=== PATIENT | female | born 1945 | race American Indian/Alaskan Native ===

== ENCOUNTER 2019-09-20 04:01 | Emergency (ER) | payer MEDICARE ==
--- NOTE | 2019-09-20 05:16 | XRay Report ---
LEFT ANKLE 3 VIEWS INDICATION / CLINICAL INFORMATION: left ankle pain COMPARISON: None available. FINDINGS: BONES / JOINT(S): No acute fracture or subluxation. No significant arthritis. SOFT TISSUES: There is significant soft tissue swelling. ADDITIONAL FINDINGS: None. Signer Name: Evaristo River MD Signed: 09/20/2019 5:12 AM Workstation Name: [id number]
--- NOTE | 2019-09-20 05:46 | Emergency Department Report ---
HPI - General Chief Complaint: Extremity Injury, Lower Time Seen by Provider: 09/20/19 05:36 - HPI HPI: 74-year-old -[place] female presents to the emergency department via EMS from [facility] with a complaint of left ankle pain and swelling after she fell and slid down in the bathroom on night, about 30 hours ago. She says that her left foot and ankle went underneath her and she has been having pain since that time. She denies hitting her head or any loss of consciousness. She has a past medical history of kidney stones, paroxysmal A. fib, COPD, and orthostatic hypotension. She has no other complaints at this time. The patient is currently at [place] for physical rehabilitation. ED Past Medical Hx - Past Medical History Previous Medical History?: Yes Hx Kidney Stones: Yes Additional medical history: Afib, low BP - Surgical History Past Surgical History?: Yes Additional Surgical History: head surgery - Social History Smoking Status: Never Smoker Substance Use Type: None ED Review of Systems ROS: Stated complaint: LT ANKLE INJURY Other details as noted in HPI Comment: All other systems reviewed and negative Constitutional: denies: chills, fever Respiratory: denies: shortness of breath Cardiovascular: denies: chest pain Gastrointestinal: denies: abdominal pain Musculoskeletal: joint swelling, arthralgia Skin: denies: rash, lesions Neurological: denies: numbness, paresthesias Physical Exam - Physical Exam Vital Signs: Vital Signs 09/20/19 09/20/19 09/20/19 04:18 04:30 05:00 Temperature 97.8 F Pulse Rate 73 69 69 Respiratory 22 17 22 Rate Blood Pressure 104/63 100/58 99/63 O2 Sat by Pulse 95 99 Oximetry Physical Exam: GENERAL: The patient is well-developed well-nourished. HEENT: Normocephalic. Atraumatic. Patient has moist mucous membranes. EYES: Extraocular motions are intact. NECK: Supple. Trachea is midline. CHEST/LUNGS: Clear to auscultation. There is no respiratory distress noted. HEART/CARDIOVASCULAR: Regular. There is no tachycardia. There is no murmur. ABDOMEN: There is no abdominal distention. SKIN:Skin is warm and dry. There is mild left ankle swelling. NEURO: The patient is awake, alert, and oriented. The patient is cooperative. The patient has no focal neurologic deficits. Normal speech. MUSCULOSKELETAL: There is tenderness to palpation to the circumferential left ankle but no obvious deformities. +2 over 4 dorsalis pedis pulse. There is no tenderness to palpation or compression of the hips or pelvis. ED Course Vital Signs 09/20/19 09/20/19 09/20/19 04:18 04:30 05:00 Temperature 97.8 F Pulse Rate 73 69 69 Respiratory 22 17 22 Rate Blood Pressure 104/63 100/58 99/63 O2 Sat by Pulse 95 99 Oximetry ED Medical Decision Making - Radiology Data Radiology results: image reviewed interpreted by me: X-ray of the left ankle does not show any fracture, dislocation, or any acute process. - Medical Decision Making This patient presents to the emergency department with left ankle pain after she fell with her foot and ankle underneath her on evening. An x-ray was done here that does not show any fracture, dislocation, or any acute process. The patient appears neurovascularly intact. She does not have any other areas of discomfort or any other complaints at this time. She has been placed in a ankle wrap and has been given some referrals for orthopedic follow-up. She will return to the ER with any worsening of her symptoms or any acute distress. - Differential Diagnosis ankle sprain, fracture, dislocation Critical Care Time: No Critical care attestation.: If time is entered above; I have spent that time in minutes in the direct care of this critically ill patient, excluding procedure time. ED Disposition Clinical Impression: Left ankle pain Qualifiers: Chronicity: acute Qualified Code(s): M25.572 - Pain in left ankle and joints of left foot Ankle sprain Qualifiers: Encounter type: initial encounter Involved ligament of ankle: unspecified ligament Laterality: left Qualified Code(s): S93.402A - Sprain of unspecified ligament of left ankle, initial encounter Disposition: TO HOME OR SELFCARE Is pt being admited?: No Condition: Stable Instructions: Ankle Sprain (ED), Arthralgia (ED) Additional Instructions: Please follow up with your primary care physician in the next few days. I'm giving you a referral for to local orthopedic groups in the area, Dr. Rothman and Stephanie, to follow up regarding your ankle pain. Return to the emergency Department with any worsening of your symptoms or any acute distress. Referrals: JAYY ROTHMAN MD [Staff Physician] - 2-3 Days [facility] [Provider Group] - 2-3 Days Time of Disposition: 05:40
[2019-09-20 07:01] VITALS: BP 98/53
== END 2019-09-20 07:43 | disposition home or self-care (01) ==
LOC: ED 04:01
DX: S93.402A Sprain of unspecified ligament of left ankle, initial encounter (principal); N20.0 Calculus of kidney; Z98.890 Other specified postprocedural states; Z88.0 Allergy status to penicillin; Z88.2 Allergy status to sulfonamides; Z88.8 Allergy status to other drugs, medicaments and biological substances; W18.30XA Fall on same level, unspecified, initial encounter; Y93.89 Activity, other specified; Y92.89 Other specified places as the place of occurrence of the external cause; Y99.8 Other external cause status